=== PATIENT | male | born 1965 | race Caucasian/White ===

== ENCOUNTER 2018-10-20 17:24 | Emergency (ER) | payer OTHER ==
[~2018-10-20] VITALS: Ht 177.8 cm; Wt 98.3 kg
[~2018-10-20 17:24] MED LIST: ONDA4TAB8 PO
[2018-10-20 17:28] VITALS: Ht 177.8 cm; Wt 98.3 kg
[2018-10-20] MEDS ORDERED: ONDANSETRON 4 MG INJ IV STA (18:22)
[2018-10-20] MEDS ORDERED: SOD CHLORIDE 0.9% 1,000 ML IV ONE (18:30)
[2018-10-20 20:16] VITALS: BP 133/71; PULSE 70; RESP 16
== END 2018-10-20 20:16 | disposition home or self-care (01) ==
LOC: FTE 17:24
DX: E86.0 Dehydration (principal)
CPT/HCPCS: 80048; 81003; 82962; 85025; 96361; 96374; 99284; J2405; J7030